=== PATIENT | female | born 1975 | race Native Hawaiian/Other Pacific Islander ===

== ENCOUNTER 2021-05-16 18:50 | Inpatient (IN) | payer OTHER ==
[~2021-05-16] VITALS: Ht 177.8 cm; Wt 91.2 kg
[2021-05-16 18:55] VITALS: BP 134/78
[2021-05-16] MEDS ORDERED: OxyCODONE HCL 5 MG IR TABLET PO PRN (23:15)
[2021-05-17] MEDS: DOCUSATE SODIUM 250 MG CAPSULE PO SCH ×3 (00:01→20:51)
[2021-05-17] MEDS: GABAPENTIN 300 MG CAPSULE PO SCH ×4 (00:01→20:52)
[2021-05-17] MEDS: SENNA 187 MG TABLET PO SCH ×2 (00:01→20:52)
[2021-05-17 00:02] VITALS: BP 131/71
[2021-05-17] MEDS: CYCLOBENZAPRINE HCL 10 MG TABLET PO PRN ×3 (00:02→23:39)
[2021-05-17] MEDS: TAMOXIFEN CITRATE 10 MG TABLET PO SCH ×2 (00:20→20:52)
[2021-05-17] MEDS: NITROFURANTOIN/NITROFURAN MAC 100 MG CAPSULE [MACROBID] PO SCH ×3 (00:21→20:52)
[2021-05-17 06:48] LABS: BASOPHILS % (AUTO) 0.7 % (0.0-2.0); EOSINOPHILS % (AUTO) 1.2 % (1.0-6.0); HEMATOCRIT 37.5 % (36-46); HEMOGLOBIN 12.4 g/dL (12.0-16.0); LYMPHOCYTES # (AUTO) 1.9 K/uL (1.0-4.8); MEAN CORPUSCULAR HEMOGLOBIN 26.1 pg (26.0-34.0); MEAN CORPUSCULAR VOLUME 79 fL (80-100); MONOCYTES # (AUTO) 0.4 K/uL (0.1-1.0); MONOCYTES % (AUTO) 5.5 % (2.0-9.0); NEUTROPHILS # (AUTO) 5.5 K/uL (1.8-7.7); NEUTROPHILS % (AUTO) 68.6 % (40.0-70.0); PLATELET COUNT (AUTO) 203 K/uL (150-450); RED BLOOD CELL COUNT(AUTO) 4.74 MIL/uL (4.00-5.20); RED CELL DISTRIBUTION WIDTH 15.2 % (11.5-14.5)
[2021-05-17 07:04] LABS: ALANINE AMINOTRANSFERASE 26 U/L (12-78); ALBUMIN 2.8 g/dL (3.4-5.0); ALKALINE PHOSPHATASE 95 U/L (46-116); ANION GAP 8 mmol/L (8-16); ASPARTATE AMINOTRANSFERASE 16 U/L (15-37); BILIRUBIN,TOTAL 0.1 mg/dL (0.1-1.0); CALCIUM, TOTAL 8.5 mg/dL (8.8-10.5); CARBON DIOXIDE 26 mmol/L (22-29); CHLORIDE 104 mmol/L (98-107); CREATININE 0.85 mg/dL (0.60-1.30); GLOMERULAR FILTR. RATE CALC > 60 mL/min (>60); GLUCOSE,RANDOM 119 mg/dL (70-110); POTASSIUM 3.4 mmol/L (3.5-5.1); SODIUM SERUM 138 mmol/L (136-145); TOTAL PROTEIN, SERUM 6.3 g/dL (6.4-8.2); UREA NITROGEN, BLOOD 17 mg/dL (7-18)
[2021-05-17] MEDS: ENOXAPARIN SODIUM 40 MG/0.4 ML PF SYRINGE SQ SCH (08:30)
[2021-05-17] MEDS: MELOXICAM 7.5 MG TABLET PO SCH (08:31)
[2021-05-17] MEDS: THYROID 30 MG TABLET PO SCH ×3 (08:32→14:43)
[2021-05-17] MEDS: ETHYL ALCOHOL 62% ANTISEPTIC NASAL INHALANT 0.6 ML AMPUL NASAL SCH ×2 (08:32→20:51)
[2021-05-17] MEDS: LIDOCAINE 5% TRANSDERMAL PATCH TD SCH (08:36)
[2021-05-17 10:00] VITALS: BP 128/74
[2021-05-17] MEDS ORDERED: LACTULOSE 20 GM/30 ML SOLUTION UDCUP PO PRN (12:45)
[2021-05-17] MEDS: POLYETHYLENE GLYCOL 3350 17 GM PACKET PO SCH (14:44)
[2021-05-17 16:05] VITALS: BP 125/73
[2021-05-17] MEDS ORDERED: DOCUSATE SODIUM 283 MG/5 ML MINI-ENEMA PR PRN (17:00)
[2021-05-17] MEDS: -LIDODERM PATCH NOTE- MISC SCH (20:51)
[2021-05-17 23:39] VITALS: BP 128/77
[2021-05-18] MEDS: DOCUSATE SODIUM 250 MG CAPSULE PO SCH ×2 (07:56→20:48)
[2021-05-18] MEDS: MELOXICAM 7.5 MG TABLET PO SCH (07:56)
[2021-05-18] MEDS: POLYETHYLENE GLYCOL 3350 17 GM PACKET PO SCH (07:56)
[2021-05-18] MEDS: ENOXAPARIN SODIUM 40 MG/0.4 ML PF SYRINGE SQ SCH (07:56)
[2021-05-18] MEDS: GABAPENTIN 300 MG CAPSULE PO SCH ×3 (07:56→20:48)
[2021-05-18] MEDS: NITROFURANTOIN/NITROFURAN MAC 100 MG CAPSULE [MACROBID] PO SCH ×2 (07:56→20:50)
[2021-05-18] MEDS: LIDOCAINE 5% TRANSDERMAL PATCH TD SCH (07:57)
[2021-05-18] MEDS: THYROID 30 MG TABLET PO SCH (07:57)
[2021-05-18] MEDS: ETHYL ALCOHOL 62% ANTISEPTIC NASAL INHALANT 0.6 ML AMPUL NASAL SCH ×2 (07:57→20:46)
[2021-05-18 08:30] VITALS: BP 122/70
[2021-05-18] MEDS: CYCLOBENZAPRINE HCL 10 MG TABLET PO PRN ×2 (14:55→22:10)
[2021-05-18 16:05] VITALS: BP 132/77
[2021-05-18] MEDS: TAMOXIFEN CITRATE 10 MG TABLET PO SCH (20:44)
[2021-05-18] MEDS: -LIDODERM PATCH NOTE- MISC SCH (20:46)
[2021-05-18] MEDS: SENNA 187 MG TABLET PO SCH (20:48)
[2021-05-19 03:30] VITALS: BP 123/71
[2021-05-19] MEDS: THYROID 30 MG TABLET PO SCH (07:28)
[2021-05-19] MEDS: LIDOCAINE 5% TRANSDERMAL PATCH TD SCH (07:29)
[2021-05-19] MEDS: MELOXICAM 7.5 MG TABLET PO SCH (08:25)
[2021-05-19] MEDS: ENOXAPARIN SODIUM 40 MG/0.4 ML PF SYRINGE SQ SCH (08:35)
[2021-05-19] MEDS: POLYETHYLENE GLYCOL 3350 17 GM PACKET PO SCH (08:36)
[2021-05-19] MEDS: DOCUSATE SODIUM 250 MG CAPSULE PO SCH ×2 (08:36→20:49)
[2021-05-19] MEDS: GABAPENTIN 300 MG CAPSULE PO SCH ×3 (08:36→20:49)
[2021-05-19] MEDS: ETHYL ALCOHOL 62% ANTISEPTIC NASAL INHALANT 0.6 ML AMPUL NASAL SCH ×2 (08:37→20:48)
[2021-05-19 09:01] VITALS: BP 121/72
[2021-05-19] MEDS: CYCLOBENZAPRINE HCL 10 MG TABLET PO PRN ×2 (12:13→23:57)
[2021-05-19 16:00] VITALS: BP 123/75
[2021-05-19] MEDS ORDERED: LIDOCAINE 1% 10 ML VIAL ID ONE (17:30)
[2021-05-19] MEDS: -LIDODERM PATCH NOTE- MISC SCH (20:48)
[2021-05-19] MEDS: SENNA 187 MG TABLET PO SCH (20:49)
[2021-05-19] MEDS: TAMOXIFEN CITRATE 10 MG TABLET PO SCH (20:50)
[2021-05-19 22:30] LABS: GLUCOSE, CSF 60 mg/dL (50-80); TOTAL PROTEIN, CSF 23 mg/dL (15-45)
[2021-05-19 23:23] LABS: APPEARANCE,CSF CLEAR (CLEAR); APPEARANCE2,CSF CLEAR (CLEAR); COLOR,CSF COLORLESS (COLORLESS); CSF 2ND TUBE NUMBER 4; CSF TOTAL VOLUME 16.5 mL; CSF TUBE NUMBER 1; NEUTROPHILS1,CSF 100 %; RED BLOOD CELL1,CSF 3.3 CMM (0-0); WHITE BLOOD CELL1,CSF 1.7 CMM (0-5)
[2021-05-19 23:24] LABS: COLOR2,CSF COLORLESS (COLORLESS); LYMPHOCYTES2,CSF 50 %; NEUTROPHILS2,CSF 50 %; WHITE BLOOD CELL2,CSF 1.7 CMM (0-5)
[2021-05-19 23:57] VITALS: BP 132/81
[2021-05-20] VITALS: BP 132/81
[2021-05-20] MEDS: THYROID 30 MG TABLET PO SCH (06:21)
[2021-05-20] MEDS: ETHYL ALCOHOL 62% ANTISEPTIC NASAL INHALANT 0.6 ML AMPUL NASAL SCH ×2 (08:17→21:03)
[2021-05-20] MEDS: GABAPENTIN 300 MG CAPSULE PO SCH ×3 (08:17→21:02)
[2021-05-20] MEDS: DOCUSATE SODIUM 250 MG CAPSULE PO SCH ×3 (08:17→21:02)
[2021-05-20] MEDS: POLYETHYLENE GLYCOL 3350 17 GM PACKET PO SCH (08:17)
[2021-05-20] MEDS: ENOXAPARIN SODIUM 40 MG/0.4 ML PF SYRINGE SQ SCH (08:18)
[2021-05-20] MEDS: LIDOCAINE 5% TRANSDERMAL PATCH TD SCH (08:18)
[2021-05-20] MEDS: MELOXICAM 7.5 MG TABLET PO SCH (08:19)
[2021-05-20 08:20] VITALS: BP 127/82
[2021-05-20] MEDS: ACETAMINOPHEN 325 MG TABLET PO PRN ×2 (08:20→12:53)
[2021-05-20 14:31] LABS: ANION GAP 9 mmol/L (8-16); CALCIUM, TOTAL 8.9 mg/dL (8.8-10.5); CARBON DIOXIDE 29 mmol/L (22-29); CHLORIDE 101 mmol/L (98-107); CREATININE 0.81 mg/dL (0.60-1.30); GLOMERULAR FILTR. RATE CALC > 60 mL/min (>60); GLUCOSE,RANDOM 90 mg/dL (70-110); POTASSIUM 4.1 mmol/L (3.5-5.1); SODIUM SERUM 139 mmol/L (136-145); UREA NITROGEN, BLOOD 18 mg/dL (7-18)
[2021-05-20 15:03] LABS: THYROID STIMULATING HORMONE 10.62 uIU/mL (0.36-3.74)
[2021-05-20 17:08] VITALS: BP 121/77
[2021-05-20] MEDS: CYCLOBENZAPRINE HCL 10 MG TABLET PO PRN ×2 (17:08→23:47)
[2021-05-20] MEDS: TAMOXIFEN CITRATE 10 MG TABLET PO SCH (21:01)
[2021-05-20] MEDS: SENNA 187 MG TABLET PO SCH (21:02)
[2021-05-20] MEDS: -LIDODERM PATCH NOTE- MISC SCH (21:03)
[2021-05-20 22:15] VITALS: BP 125/79
[2021-05-20 23:47] VITALS: BP 122/68
[2021-05-21] MEDS: THYROID 30 MG TABLET PO SCH (06:22)
[2021-05-21] MEDS: GABAPENTIN 300 MG CAPSULE PO SCH (08:06)
[2021-05-21] MEDS: ETHYL ALCOHOL 62% ANTISEPTIC NASAL INHALANT 0.6 ML AMPUL NASAL SCH ×2 (08:06→20:55)
[2021-05-21] MEDS: MELOXICAM 7.5 MG TABLET PO SCH (08:06)
[2021-05-21] MEDS: ENOXAPARIN SODIUM 40 MG/0.4 ML PF SYRINGE SQ SCH (08:07)
[2021-05-21] MEDS: LIDOCAINE 5% TRANSDERMAL PATCH TD SCH (08:13)
[2021-05-21] MEDS: POLYETHYLENE GLYCOL 3350 17 GM PACKET PO SCH (08:13)
[2021-05-21] MEDS: DOCUSATE SODIUM 250 MG CAPSULE PO SCH ×2 (08:13→20:55)
[2021-05-21 09:00] VITALS: BP 119/73
[2021-05-21] MEDS: CYCLOBENZAPRINE HCL 10 MG TABLET PO PRN (11:49)
[2021-05-21] MEDS: FUROSEMIDE 20 MG TABLET PO SCH (11:51)
[2021-05-21 12:47] LABS: APPEARANCE,URINE CLOUDY (CLEAR); BILIRUBIN,URINE NEGATIVE (NEGATIVE); GLUCOSE, URINE (UA) NEGATIVE (NEGATIVE); KETONES,URINE NEGATIVE (NEGATIVE); LEUKOCYTE ESTERASE ,URINE LARGE (NEGATIVE); NITRATE,URINE NEGATIVE (NEGATIVE); OCCULT BLOOD,URINE TRACE (NEGATIVE); PROTEIN,URINE NEGATIVE (NEGATIVE); UROBILINOGEN,URINE 0.2 mg/dL (<=1.0)
[2021-05-21 13:21] LABS: BACTERIA,URINE Many /HPF (None Seen); RBC,URINE 0-2 /HPF (0-2); SQUAMOUS EPITHELIAL CELL,UR Few /LPF (None Seen); WBC,URINE >100 /HPF (0-5)
[2021-05-21 13:50] LABS: COVID AG,FIA SOURCE NASAL SWAB
[2021-05-21] MEDS ORDERED: GADOTERATE MEGLUMINE 10 MMOL/20 ML VIAL IVP ONE (13:57)
[2021-05-21] MEDS: CIPROFLOXACIN HCL 500 MG TABLET PO SCH (16:11)
[2021-05-21 16:30] VITALS: BP 127/70
[2021-05-21] MEDS ORDERED: SODIUM CHLORIDE 0.9% 250 ML IV ONE (17:50)
[2021-05-21] MEDS: MethylPREDNISolone SOD SUCC 1,000 MG in SODIUM CHLORIDE 0.9% 50 ML IV SCH (18:07)
[2021-05-21] MEDS: SENNA 187 MG TABLET PO SCH ×2 (20:55→21:00)
[2021-05-21] MEDS: -LIDODERM PATCH NOTE- MISC SCH (20:55)
[2021-05-21] MEDS: TAMOXIFEN CITRATE 10 MG TABLET PO SCH (20:56)
[2021-05-22 00:03] VITALS: BP 132/87
[2021-05-22] MEDS: CYCLOBENZAPRINE HCL 10 MG TABLET PO PRN ×3 (00:03→21:13)
[2021-05-22] MEDS: 0.9% SODIUM CHLORIDE 10 ML SYRINGE IVP SCH ×4 (00:21→23:03)
[2021-05-22] MEDS: THYROID 30 MG TABLET PO SCH (06:14)
[2021-05-22] MEDS: LIDOCAINE 5% TRANSDERMAL PATCH TD SCH (08:17)
[2021-05-22] MEDS: ENOXAPARIN SODIUM 40 MG/0.4 ML PF SYRINGE SQ SCH (08:18)
[2021-05-22] MEDS: DOCUSATE SODIUM 250 MG CAPSULE PO SCH ×3 (08:19→21:00)
[2021-05-22] MEDS: POLYETHYLENE GLYCOL 3350 17 GM PACKET PO SCH (08:19)
[2021-05-22] MEDS: CIPROFLOXACIN HCL 500 MG TABLET PO SCH ×2 (08:19→20:52)
[2021-05-22] MEDS: FUROSEMIDE 20 MG TABLET PO SCH (08:20)
[2021-05-22] MEDS: ETHYL ALCOHOL 62% ANTISEPTIC NASAL INHALANT 0.6 ML AMPUL NASAL SCH ×2 (08:21→20:52)
[2021-05-22 08:56] LABS: ANION GAP 8 mmol/L (8-16); CALCIUM, TOTAL 9.3 mg/dL (8.8-10.5); CARBON DIOXIDE 28 mmol/L (22-29); CHLORIDE 102 mmol/L (98-107); CREATININE 0.78 mg/dL (0.60-1.30); FREE T4 (FREE THYROXINE) 0.54 ng/dL (0.76-1.46); GLOMERULAR FILTR. RATE CALC > 60 mL/min (>60); GLUCOSE,RANDOM 129 mg/dL (70-110); SODIUM SERUM 138 mmol/L (136-145); UREA NITROGEN, BLOOD 19 mg/dL (7-18)
[2021-05-22 10:05] VITALS: BP 132/84
[2021-05-22] MEDS: ACETAMINOPHEN 325 MG TABLET PO PRN ×2 (11:11→15:21)
[2021-05-22 15:28] VITALS: BP 128/71
[2021-05-22] MEDS: MethylPREDNISolone SOD SUCC 1,000 MG in SODIUM CHLORIDE 0.9% 50 ML IV SCH (18:32)
[2021-05-22] MEDS: TAMOXIFEN CITRATE 10 MG TABLET PO SCH (20:51)
[2021-05-22] MEDS: SENNA 187 MG TABLET PO SCH ×2 (20:51→21:00)
[2021-05-22] MEDS: -LIDODERM PATCH NOTE- MISC SCH (20:52)
[2021-05-23] MEDS: THYROID 30 MG TABLET PO SCH (06:06)
[2021-05-23] MEDS ORDERED: THYROID 30 MG TABLET PO SCH (07:00)
[2021-05-23] MEDS: POLYETHYLENE GLYCOL 3350 17 GM PACKET PO SCH (07:51)
[2021-05-23] MEDS: DOCUSATE SODIUM 250 MG CAPSULE PO SCH ×2 (07:51→21:00)
[2021-05-23] MEDS: FUROSEMIDE 20 MG TABLET PO SCH (07:51)
[2021-05-23] MEDS: 0.9% SODIUM CHLORIDE 10 ML SYRINGE IVP SCH ×3 (07:51→23:41)
[2021-05-23] MEDS: ENOXAPARIN SODIUM 40 MG/0.4 ML PF SYRINGE SQ SCH (07:51)
[2021-05-23] MEDS: LIDOCAINE 5% TRANSDERMAL PATCH TD SCH (07:52)
[2021-05-23] MEDS: ETHYL ALCOHOL 62% ANTISEPTIC NASAL INHALANT 0.6 ML AMPUL NASAL SCH ×2 (07:52→21:01)
[2021-05-23] MEDS: CIPROFLOXACIN HCL 500 MG TABLET PO SCH ×2 (09:58→21:01)
[2021-05-23] MEDS: ACETAMINOPHEN 325 MG TABLET PO PRN (10:01)
[2021-05-23 10:05] VITALS: BP 142/74
[2021-05-23] MEDS: CYCLOBENZAPRINE HCL 10 MG TABLET PO PRN ×2 (14:29→22:39)
[2021-05-23 16:30] VITALS: BP 130/72
[2021-05-23] MEDS: MethylPREDNISolone SOD SUCC 1,000 MG in SODIUM CHLORIDE 0.9% 50 ML IV SCH (19:36)
[2021-05-23] MEDS: SENNA 187 MG TABLET PO SCH (21:00)
[2021-05-23] MEDS: TAMOXIFEN CITRATE 10 MG TABLET PO SCH (21:01)
[2021-05-23] MEDS: -LIDODERM PATCH NOTE- MISC SCH (21:02)
[2021-05-24] VITALS: BP 145/80
[2021-05-24 05:07] LABS: RUBEOLA (MEASLES) IGG CSF <5.0 AU/mL (<=16.4); RUBEOLA (MEASLES) IGM CSF 0.24 AU (0.00-0.79); WEST NILE VIRUS IGG CSF 0.37 IV (<=1.29)
[2021-05-24] MEDS: THYROID 30 MG TABLET PO SCH (06:12)
[2021-05-24] MEDS: ENOXAPARIN SODIUM 40 MG/0.4 ML PF SYRINGE SQ SCH (08:03)
[2021-05-24 08:04] VITALS: BP 142/80
[2021-05-24] MEDS: LIDOCAINE 5% TRANSDERMAL PATCH TD SCH (08:04)
[2021-05-24] MEDS: CIPROFLOXACIN HCL 500 MG TABLET PO SCH ×2 (08:04→21:06)
[2021-05-24] MEDS: FUROSEMIDE 20 MG TABLET PO SCH (08:04)
[2021-05-24] MEDS: CYCLOBENZAPRINE HCL 10 MG TABLET PO PRN ×2 (08:04→16:10)
[2021-05-24] MEDS: 0.9% SODIUM CHLORIDE 10 ML SYRINGE IVP SCH ×3 (08:04→23:24)
[2021-05-24] MEDS: ETHYL ALCOHOL 62% ANTISEPTIC NASAL INHALANT 0.6 ML AMPUL NASAL SCH ×2 (08:05→21:05)
[2021-05-24] MEDS: DOCUSATE SODIUM 250 MG CAPSULE PO SCH ×2 (08:13→21:00)
[2021-05-24] MEDS: POLYETHYLENE GLYCOL 3350 17 GM PACKET PO SCH (08:13)
[2021-05-24 15:55] VITALS: BP 146/84
[2021-05-24] MEDS ORDERED: HYDROCODONE/ACETAMINOPHEN 5-325 MG TABLET PO PRN (16:15)
[2021-05-24] MEDS ORDERED: MELATONIN 5 MG TABLET PO PRN (16:15)
[2021-05-24] MEDS: SENNA 187 MG TABLET PO SCH (21:00)
[2021-05-24] MEDS: TAMOXIFEN CITRATE 10 MG TABLET PO SCH (21:05)
[2021-05-24] MEDS: -LIDODERM PATCH NOTE- MISC SCH (21:09)
[2021-05-24] MEDS ORDERED: TAMO10 PO (21:13)
[2021-05-24] MEDS ORDERED: THYR30 PO (21:14)
[2021-05-24] MEDS ORDERED: POLY17PO PO (21:16)
[2021-05-24] MEDS ORDERED: DOCU-350 PO (21:17)
[2021-05-24] MEDS ORDERED: LIDO1ADH83 TP (21:20)
[2021-05-24] MEDS ORDERED: CYCL10TA17 PO (21:22)
[2021-05-25] VITALS: BP 116/61
[2021-05-25] MEDS: THYROID 30 MG TABLET PO SCH (06:37)
[2021-05-25] MEDS: POLYETHYLENE GLYCOL 3350 17 GM PACKET PO SCH (08:53)
[2021-05-25] MEDS: DOCUSATE SODIUM 250 MG CAPSULE PO SCH ×2 (08:53→20:29)
[2021-05-25] MEDS: 0.9% SODIUM CHLORIDE 10 ML SYRINGE IVP SCH ×3 (08:53→23:19)
[2021-05-25] MEDS: LIDOCAINE 5% TRANSDERMAL PATCH TD SCH (08:54)
[2021-05-25] MEDS: ENOXAPARIN SODIUM 40 MG/0.4 ML PF SYRINGE SQ SCH (08:54)
[2021-05-25] MEDS: CIPROFLOXACIN HCL 500 MG TABLET PO SCH ×2 (08:54→20:45)
[2021-05-25] MEDS: ETHYL ALCOHOL 62% ANTISEPTIC NASAL INHALANT 0.6 ML AMPUL NASAL SCH ×2 (08:55→20:45)
[2021-05-25 09:11] VITALS: BP 131/80
[2021-05-25] MEDS: CYCLOBENZAPRINE HCL 10 MG TABLET PO PRN (10:08)
[2021-05-25 16:04] VITALS: BP 138/91
[2021-05-25] MEDS: SENNA 187 MG TABLET PO SCH (20:29)
[2021-05-25] MEDS: TAMOXIFEN CITRATE 10 MG TABLET PO SCH (20:45)
[2021-05-25] MEDS: -LIDODERM PATCH NOTE- MISC SCH (20:45)
[2021-05-25 23:23] VITALS: BP 125/74
[2021-05-26] MEDS: ACETAMINOPHEN 325 MG TABLET PO PRN (03:43)
[2021-05-26] MEDS: THYROID 30 MG TABLET PO SCH (06:40)
[2021-05-26] MEDS: 0.9% SODIUM CHLORIDE 10 ML SYRINGE IVP SCH ×3 (08:10→22:58)
[2021-05-26] MEDS: LIDOCAINE 5% TRANSDERMAL PATCH TD SCH (08:11)
[2021-05-26] MEDS: CIPROFLOXACIN HCL 500 MG TABLET PO SCH ×2 (08:11→21:02)
[2021-05-26] MEDS: ENOXAPARIN SODIUM 40 MG/0.4 ML PF SYRINGE SQ SCH (08:11)
[2021-05-26] MEDS: ETHYL ALCOHOL 62% ANTISEPTIC NASAL INHALANT 0.6 ML AMPUL NASAL SCH ×2 (08:11→21:02)
[2021-05-26] MEDS: DOCUSATE SODIUM 250 MG CAPSULE PO SCH ×2 (08:12→21:02)
[2021-05-26] MEDS: POLYETHYLENE GLYCOL 3350 17 GM PACKET PO SCH (08:13)
[2021-05-26 08:25] VITALS: BP 141/80
[2021-05-26] MEDS: GABAPENTIN 100 MG CAPSULE PO SCH ×3 (10:17→21:02)
[2021-05-26 16:18] VITALS: BP 123/61
[2021-05-26] MEDS: CYCLOBENZAPRINE HCL 10 MG TABLET PO PRN ×2 (16:18→23:24)
[2021-05-26] MEDS: SENNA 187 MG TABLET PO SCH (21:00)
[2021-05-26] MEDS: TAMOXIFEN CITRATE 10 MG TABLET PO SCH (21:01)
[2021-05-26] MEDS: -LIDODERM PATCH NOTE- MISC SCH (21:03)
[2021-05-26 23:24] VITALS: BP 137/87
[2021-05-27] MEDS: THYROID 30 MG TABLET PO SCH (06:07)
[2021-05-27 08:03] VITALS: BP 130/75
[2021-05-27] MEDS: ETHYL ALCOHOL 62% ANTISEPTIC NASAL INHALANT 0.6 ML AMPUL NASAL SCH ×2 (08:21→20:48)
[2021-05-27] MEDS: 0.9% SODIUM CHLORIDE 10 ML SYRINGE IVP SCH ×3 (08:21→23:45)
[2021-05-27] MEDS: GABAPENTIN 100 MG CAPSULE PO SCH ×3 (08:22→20:48)
[2021-05-27] MEDS: ENOXAPARIN SODIUM 40 MG/0.4 ML PF SYRINGE SQ SCH (08:22)
[2021-05-27] MEDS: LIDOCAINE 5% TRANSDERMAL PATCH TD SCH (08:22)
[2021-05-27] MEDS: DOCUSATE SODIUM 250 MG CAPSULE PO SCH ×2 (08:23→20:48)
[2021-05-27] MEDS: CIPROFLOXACIN HCL 500 MG TABLET PO SCH ×2 (08:23→20:48)
[2021-05-27] MEDS: POLYETHYLENE GLYCOL 3350 17 GM PACKET PO SCH (08:24)
[2021-05-27 16:08] VITALS: BP 132/77
[2021-05-27] MEDS: CYCLOBENZAPRINE HCL 10 MG TABLET PO PRN (20:48)
[2021-05-27] MEDS: -LIDODERM PATCH NOTE- MISC SCH (20:48)
[2021-05-27] MEDS: TAMOXIFEN CITRATE 10 MG TABLET PO SCH (20:49)
[2021-05-27] MEDS: SENNA 187 MG TABLET PO SCH (20:49)
[2021-05-27 23:46] VITALS: BP 131/77
[2021-05-28] MEDS: THYROID 30 MG TABLET PO SCH (06:03)
[2021-05-28 08:20] VITALS: BP 130/71
[2021-05-28] MEDS: 0.9% SODIUM CHLORIDE 10 ML SYRINGE IVP SCH ×2 (08:23→16:00)
[2021-05-28] MEDS: ETHYL ALCOHOL 62% ANTISEPTIC NASAL INHALANT 0.6 ML AMPUL NASAL SCH ×2 (08:23→20:01)
[2021-05-28] MEDS: POLYETHYLENE GLYCOL 3350 17 GM PACKET PO SCH (09:00)
[2021-05-28] MEDS: ENOXAPARIN SODIUM 40 MG/0.4 ML PF SYRINGE SQ SCH (09:23)
[2021-05-28] MEDS: DOCUSATE SODIUM 250 MG CAPSULE PO SCH ×2 (09:25→20:01)
[2021-05-28] MEDS: CIPROFLOXACIN HCL 500 MG TABLET PO SCH ×2 (09:25→20:01)
[2021-05-28] MEDS: GABAPENTIN 100 MG CAPSULE PO SCH ×3 (09:25→20:01)
[2021-05-28] MEDS: ACETAMINOPHEN 325 MG TABLET PO PRN ×2 (09:26→13:29)
[2021-05-28] MEDS: LIDOCAINE 5% TRANSDERMAL PATCH TD SCH (09:26)
[2021-05-28] MEDS: CYCLOBENZAPRINE HCL 10 MG TABLET PO PRN ×2 (13:29→23:15)
[2021-05-28 16:30] VITALS: BP 123/82
[2021-05-28] MEDS: -LIDODERM PATCH NOTE- MISC SCH (20:00)
[2021-05-28] MEDS: TAMOXIFEN CITRATE 10 MG TABLET PO SCH (20:06)
[2021-05-28] MEDS: SENNA 187 MG TABLET PO SCH (20:07)
[2021-05-28 23:15] VITALS: BP 112/69
[2021-05-29] MEDS: THYROID 30 MG TABLET PO SCH (06:04)
[2021-05-29] MEDS: DOCUSATE SODIUM 250 MG CAPSULE PO SCH ×2 (07:37→20:24)
[2021-05-29] MEDS: ENOXAPARIN SODIUM 40 MG/0.4 ML PF SYRINGE SQ SCH (07:37)
[2021-05-29] MEDS: CIPROFLOXACIN HCL 500 MG TABLET PO SCH ×2 (07:37→20:22)
[2021-05-29] MEDS: GABAPENTIN 100 MG CAPSULE PO SCH ×3 (07:37→20:22)
[2021-05-29] MEDS: POLYETHYLENE GLYCOL 3350 17 GM PACKET PO SCH (07:38)
[2021-05-29] MEDS: LIDOCAINE 5% TRANSDERMAL PATCH TD SCH (07:38)
[2021-05-29] MEDS: ETHYL ALCOHOL 62% ANTISEPTIC NASAL INHALANT 0.6 ML AMPUL NASAL SCH ×2 (07:38→20:22)
[2021-05-29 09:04] VITALS: BP 125/78
[2021-05-29] MEDS: ACETAMINOPHEN 325 MG TABLET PO PRN (12:52)
[2021-05-29 15:20] VITALS: BP 129/85
[2021-05-29] MEDS: CYCLOBENZAPRINE HCL 10 MG TABLET PO PRN (19:47)
[2021-05-29] MEDS: -LIDODERM PATCH NOTE- MISC SCH (20:22)
[2021-05-29] MEDS: TAMOXIFEN CITRATE 10 MG TABLET PO SCH (20:22)
[2021-05-29] MEDS: SENNA 187 MG TABLET PO SCH (20:23)
[2021-05-29 23:37] VITALS: BP 136/83
[2021-05-30] MEDS: THYROID 30 MG TABLET PO SCH (06:19)
[2021-05-30] MEDS: GABAPENTIN 100 MG CAPSULE PO SCH ×3 (08:04→21:18)
[2021-05-30] MEDS: POLYETHYLENE GLYCOL 3350 17 GM PACKET PO SCH ×2 (08:04→08:10)
[2021-05-30] MEDS: CIPROFLOXACIN HCL 500 MG TABLET PO SCH ×2 (08:04→21:18)
[2021-05-30] MEDS: ETHYL ALCOHOL 62% ANTISEPTIC NASAL INHALANT 0.6 ML AMPUL NASAL SCH ×2 (08:08→21:18)
[2021-05-30] MEDS: ENOXAPARIN SODIUM 40 MG/0.4 ML PF SYRINGE SQ SCH ×2 (08:09→11:28)
[2021-05-30] MEDS: DOCUSATE SODIUM 250 MG CAPSULE PO SCH ×2 (08:12→21:18)
[2021-05-30 09:00] VITALS: BP 120/74
[2021-05-30] MEDS: CYCLOBENZAPRINE HCL 10 MG TABLET PO PRN ×2 (10:05→23:20)
[2021-05-30] MEDS: LIDOCAINE 5% TRANSDERMAL PATCH TD SCH (10:09)
[2021-05-30 16:15] VITALS: BP 116/82
[2021-05-30] MEDS: SENNA 187 MG TABLET PO SCH (21:00)
[2021-05-30] MEDS: TAMOXIFEN CITRATE 10 MG TABLET PO SCH (21:18)
[2021-05-30] MEDS: -LIDODERM PATCH NOTE- MISC SCH (21:19)
[2021-05-30 23:20] VITALS: BP 112/74
[2021-05-31] MEDS: THYROID 30 MG TABLET PO SCH (06:14)
[2021-05-31 09:00] VITALS: BP 107/65
[2021-05-31] MEDS: POLYETHYLENE GLYCOL 3350 17 GM PACKET PO SCH (09:00)
[2021-05-31] MEDS: CIPROFLOXACIN HCL 500 MG TABLET PO SCH (09:33)
[2021-05-31] MEDS: DOCUSATE SODIUM 250 MG CAPSULE PO SCH ×2 (09:33→20:50)
[2021-05-31] MEDS: ETHYL ALCOHOL 62% ANTISEPTIC NASAL INHALANT 0.6 ML AMPUL NASAL SCH ×2 (09:33→20:50)
[2021-05-31] MEDS: LIDOCAINE 5% TRANSDERMAL PATCH TD SCH (09:34)
[2021-05-31] MEDS: GABAPENTIN 100 MG CAPSULE PO SCH ×3 (09:34→20:50)
[2021-05-31] MEDS: ENOXAPARIN SODIUM 40 MG/0.4 ML PF SYRINGE SQ SCH (09:34)
[2021-05-31] MEDS: ACETAMINOPHEN 325 MG TABLET PO PRN (11:02)
[2021-05-31 15:26] VITALS: BP 127/85
[2021-05-31] MEDS: CYCLOBENZAPRINE HCL 10 MG TABLET PO PRN ×2 (15:26→23:21)
[2021-05-31] MEDS: SENNA 187 MG TABLET PO SCH ×2 (20:50→21:00)
[2021-05-31] MEDS: TAMOXIFEN CITRATE 10 MG TABLET PO SCH (20:50)
[2021-05-31] MEDS: -LIDODERM PATCH NOTE- MISC SCH (20:50)
[2021-05-31 23:21] VITALS: BP 117/69
[2021-06-01] MEDS: CYCLOBENZAPRINE HCL 10 MG TABLET PO PRN ×2 (05:47→23:13)
[2021-06-01] MEDS: THYROID 30 MG TABLET PO SCH (05:52)
[2021-06-01 07:14] VITALS: BP 116/65
[2021-06-01] MEDS: ACETAMINOPHEN 325 MG TABLET PO PRN (07:14)
[2021-06-01] MEDS: ENOXAPARIN SODIUM 40 MG/0.4 ML PF SYRINGE SQ SCH (08:18)
[2021-06-01] MEDS: DOCUSATE SODIUM 250 MG CAPSULE PO SCH ×2 (08:19→20:44)
[2021-06-01] MEDS: LIDOCAINE 5% TRANSDERMAL PATCH TD SCH (08:19)
[2021-06-01] MEDS: GABAPENTIN 100 MG CAPSULE PO SCH ×3 (08:19→20:44)
[2021-06-01] MEDS: ETHYL ALCOHOL 62% ANTISEPTIC NASAL INHALANT 0.6 ML AMPUL NASAL SCH ×2 (08:20→20:44)
[2021-06-01] MEDS: POLYETHYLENE GLYCOL 3350 17 GM PACKET PO SCH (08:20)
[2021-06-01 15:31] VITALS: BP 122/64
[2021-06-01] MEDS: -LIDODERM PATCH NOTE- MISC SCH (20:44)
[2021-06-01] MEDS: TAMOXIFEN CITRATE 10 MG TABLET PO SCH (20:44)
[2021-06-01] MEDS: SENNA 187 MG TABLET PO SCH (20:45)
[2021-06-01 23:13] VITALS: BP 114/70
[2021-06-02] MEDS: THYROID 30 MG TABLET PO SCH (05:52)
[2021-06-02 07:55] VITALS: BP 114/67
[2021-06-02] MEDS: DOCUSATE SODIUM 250 MG CAPSULE PO SCH ×2 (08:04→21:15)
[2021-06-02] MEDS: ETHYL ALCOHOL 62% ANTISEPTIC NASAL INHALANT 0.6 ML AMPUL NASAL SCH ×2 (08:04→21:15)
[2021-06-02] MEDS: GABAPENTIN 100 MG CAPSULE PO SCH ×3 (08:04→21:15)
[2021-06-02] MEDS: ENOXAPARIN SODIUM 40 MG/0.4 ML PF SYRINGE SQ SCH (08:04)
[2021-06-02] MEDS: LIDOCAINE 5% TRANSDERMAL PATCH TD SCH (08:05)
[2021-06-02] MEDS: ACETAMINOPHEN 325 MG TABLET PO PRN (08:13)
[2021-06-02] MEDS: POLYETHYLENE GLYCOL 3350 17 GM PACKET PO SCH (08:23)
[2021-06-02] MEDS ORDERED: GABA-1216 PO (09:08)
[2021-06-02] MEDS: CYCLOBENZAPRINE HCL 10 MG TABLET PO PRN ×2 (12:41→23:09)
[2021-06-02 16:30] VITALS: BP 124/71
[2021-06-02 18:51] LABS: APPEARANCE,URINE CLEAR (CLEAR); BILIRUBIN,URINE NEGATIVE (NEGATIVE); GLUCOSE, URINE (UA) NEGATIVE (NEGATIVE); KETONES,URINE NEGATIVE (NEGATIVE); LEUKOCYTE ESTERASE ,URINE NEGATIVE (NEGATIVE); NITRATE,URINE NEGATIVE (NEGATIVE); OCCULT BLOOD,URINE NEGATIVE (NEGATIVE); PROTEIN,URINE NEGATIVE (NEGATIVE); UROBILINOGEN,URINE 0.2 mg/dL (<=1.0)
[2021-06-02 18:53] LABS: BACTERIA,URINE Rare /HPF (None Seen); RBC,URINE None Seen /HPF (0-2); SQUAMOUS EPITHELIAL CELL,UR Rare /LPF (None Seen); WBC,URINE 0-2 /HPF (0-5)
[2021-06-02] MEDS: SENNA 187 MG TABLET PO SCH (21:00)
[2021-06-02] MEDS: -LIDODERM PATCH NOTE- MISC SCH (21:15)
[2021-06-02] MEDS: TAMOXIFEN CITRATE 10 MG TABLET PO SCH (21:16)
[2021-06-02 23:10] VITALS: BP 115/71
[2021-06-03] MEDS: THYROID 30 MG TABLET PO SCH (05:27)
[2021-06-03] MEDS: POLYETHYLENE GLYCOL 3350 17 GM PACKET PO SCH (08:05)
[2021-06-03] MEDS: GABAPENTIN 100 MG CAPSULE PO SCH ×2 (08:05→15:56)
[2021-06-03] MEDS: DOCUSATE SODIUM 250 MG CAPSULE PO SCH (08:05)
[2021-06-03] MEDS: ETHYL ALCOHOL 62% ANTISEPTIC NASAL INHALANT 0.6 ML AMPUL NASAL SCH (08:05)
[2021-06-03] MEDS: LIDOCAINE 5% TRANSDERMAL PATCH TD SCH (08:07)
[2021-06-03] MEDS: ENOXAPARIN SODIUM 40 MG/0.4 ML PF SYRINGE SQ SCH (08:07)
[2021-06-03 09:01] VITALS: BP 120/82
[2021-06-03 10:03] LABS: THYROID STIMULATING HORMONE 6.85 uIU/mL (0.36-3.74)
[2021-06-03 10:39] LABS: FREE T4 (FREE THYROXINE) 0.68 ng/dL (0.76-1.46)
[2021-06-03 16:09] VITALS: BP 133/76
[2021-06-03] MEDS: CYCLOBENZAPRINE HCL 10 MG TABLET PO PRN (16:46)
== END 2021-06-03 16:50 | disposition home or self-care (01) | DRG 98 ==
LOC: 2WR 18:50
PROVIDERS: ADMIT Nurse Practitioner Family; ATTEND Physical Medicine & Rehabilitation
PROC: 009U3ZX Drainage of Spinal Canal, Percutaneous Approach, Diagnostic (ICD-10-PCS; principal; 2021-05-21)
DX: G37.3 Acute transverse myelitis in demyelinating disease of central nervous system (principal); E46 Unspecified protein-calorie malnutrition; N39.0 Urinary tract infection, site not specified; E03.9 Hypothyroidism, unspecified; G82.20 Paraplegia, unspecified; Z68.28 Body mass index [BMI] 28.0-28.9, adult; E87.6 Hypokalemia; F41.9 Anxiety disorder, unspecified; G47.00 Insomnia, unspecified; K59.00 Constipation, unspecified; M65.9 Synovitis and tenosynovitis, unspecified; M62.838 Other muscle spasm; Z20.822 Contact with and (suspected) exposure to COVID-19; Z85.3 Personal history of malignant neoplasm of breast; Z86.16 Personal history of COVID-19; Z90.10 Acquired absence of unspecified breast and nipple; Z88.0 Allergy status to penicillin
CPT/HCPCS: 72157; 76770; 80048; 80053; 81001; 82945; 83916; 84157; 84439; 84443; 85025; 86694; 86735; 86765; 86787; 86788; 86789; 87075; 87081; 87086; 87205; 89051; 93970; 93971; 97110; 97112; 97116; 97162; 97166; 97530; 97535; 99366; J1650; J2930; J3490; J7050; Q9967